=== PATIENT | male | born 1960 | race Caucasian/White ===

== ENCOUNTER 2016-08-18 18:00 | Emergency (ER) | payer OTHER | END 2016-08-18 20:18 | disposition home or self-care (01) | LOC: ER 18:00 | DX: J43.9 Emphysema, unspecified (principal); R91.1 Solitary pulmonary nodule; R05 Cough; R06.02 Shortness of breath; R06.2 Wheezing; Z79.01 Long term (current) use of anticoagulants; I73.9 Peripheral vascular disease, unspecified; Z86.718 Personal history of other venous thrombosis and embolism; Z79.899 Other long term (current) drug therapy ==